=== PATIENT | female | born 1935 | race Caucasian/White ===

== ENCOUNTER 2017-08-21 09:57 | Inpatient (IN) | payer OTHER, BC ==
[2017-08-21] MEDS ORDERED: NS 1,000 ML IV ONE (10:02)
--- NOTE | 2017-08-21 10:18 | EDPHY ---
H & P Stated Complaint: Cough since Monday, N/V since last night. Time Seen by Provider: 08/21/17 10:01 HPI/ROS: CHIEF COMPLAINT: Cough x4 days, vomiting x1 day HISTORY OF PRESENT ILLNESS: The patient presents the emergency department from her primary care provider's office with a history of cough x4 days and 1 day of vomiting. The patient denies any diarrhea. She denies significant abdominal pain. She denies any recent travel outside the [place] or antibiotic use. The patient does report a remote history of hyponatremia. She takes medications for her thyroid. She denies any recent hospitalizations or surgery. REVIEW OF SYSTEMS: A comprehensive 10 point review of systems is otherwise negative aside from elements mentioned in the history of present illness. Source: Patient Exam Limitations: No limitations - Personal History Current Tetanus Diphtheria and Acellular Pertussis (TDAP): No - Medical/Surgical History Hx Asthma: No Hx Chronic Respiratory Disease: No Hx Diabetes: No Hx Cardiac Disease: No Hx Renal Disease: No Hx Cirrhosis: No Hx Alcoholism: No Hx HIV/AIDS: No Hx Splenectomy or Spleen Trauma: No Other PMH: thyroid, tremor - Social History Smoking Status: Former smoker - Physical Exam Exam: General Appearance: Alert, no distress Eyes: Pupils equal and round no pallor or injection ENT, Mouth: Mucous membranes moist Respiratory: There are no retractions, lungs are clear to auscultation Cardiovascular: Regular rate and rhythm Gastrointestinal: Abdomen is soft and nontender, no masses, bowel sounds normal Neurological: A&O, normal motor function, normal sensory exam, normal cranial nerves, resting tremor Skin: Warm and dry, no rashes Musculoskeletal: Neck is supple nontender Extremities: symmetrical, full range of motion Constitutional: Initial Vital Signs Temperature (C) 37.3 C 08/21/17 09:57 Heart Rate 69 08/21/17 09:57 Respiratory Rate 16 08/21/17 09:57 Blood Pressure 134/59 H 08/21/17 09:57 O2 Sat (%) 96 08/21/17 09:57 O2 Delivery Mode Room Air Allergies/Adverse Reactions: Sulfa (Sulfonamide Antibiotics) Allergy (Verified 10/26/14 16:56) Home Medications: Medication Instructions Recorded Cholecalciferol (Vitamin D3) 5,000 unit PO Q2D 10/26/14 [Vitamin D3] Cyanocobalamin (Vitamin B-12) 1,000 mcg PO DAILY 10/26/14 [B-12] Levothyroxine [Synthroid 50 mcg 50 mcg PO DAILY06 10/26/14 (*)] Medical Decision Making - Diagnostics Imaging Results: Imaging Impressions Chest X-Ray 08/21/17 10:18 Impression: No acute pulmonary disease. ED Course/Re-evaluation: The patient presents to the ED with a 1 day history of vomiting and a several day history of cough. I reviewed the patient's past medical records. She has a history of hyponatremia from presumed water intoxication in 2014. The patient informs me that she has only been having 3 16 oz glasses of water a day recently. The patient was taken for a chest x-ray which demonstrates no pneumonia. The patient received 450 mL of normal saline in the ED and she was clinically dehydrated. This was discontinued at 10:54 a.m. Once her sodium was documented to be 119. The patient will be admitted to the hospital in a setting of her metabolic derangement. The patient does not endorse symptoms of excess water consumption. Consultation is made with the hospitalist service. She will be admitted by Dr. Estrella. Differential Diagnosis: Differential diagnosis considered includes pneumonia, asthma, bronchitis, dehydration, metabolic abnormality Critical Care Time: Critical care time exclusive of procedures and exclusive of the PA's time was 35 minutes, performed by myself, Jm Broderick MD. The patient presents to the ED with critical hyponatremia. She will require admission to the intensive care unit for further stabilization. - Data Points Laboratory Results: Laboratory Results 08/21/17 10:15 08/21/17 10:15 08/21/17 08/21/17 10:15 10:15 WBC 6.10 10^3/uL 10^3/uL (3.80-9.50) RBC 4.07 10^6/uL L 10^6/uL (4.18-5.33) Hgb 12.8 g/dL g/dL (12.6-16.3) Hct 36.9 % L % (38.0-47.0) MCV 90.7 fL fL (81.5-99.8) MCH 31.4 pg pg (27.9-34.1) MCHC 34.7 g/dL g/dL (32.4-36.7) RDW 11.9 % % (11.5-15.2) Plt Count 188 10^3/uL 10^3/uL (150-400) MPV 9.7 fL fL (8.7-11.7) Neut % (Auto) 76.9 % H % (39.3-74.2) Lymph % (Auto) 12.1 % L % (15.0-45.0) [place] % (Auto) 10.0 % % (4.5-13.0) Eos % (Auto) 0.2 % L % (0.6-7.6) Baso % (Auto) 0.3 % % (0.3-1.7) Nucleat RBC Rel Count 0.0 % % (0.0-0.2) Absolute Neuts (auto) 4.69 10^3/uL 10^3/uL (1.70-6.50) Absolute Lymphs (auto) 0.74 10^3/uL L 10^3/uL (1.00-3.00) Absolute Monos (auto) 0.61 10^3/uL 10^3/uL (0.30-0.80) Absolute Eos (auto) 0.01 10^3/uL L 10^3/uL (0.03-0.40) Absolute Basos (auto) 0.02 10^3/uL 10^3/uL (0.02-0.10) Absolute Nucleated RBC 0.00 10^3/uL 10^3/uL (0-0.01) Immature Gran % 0.5 % % (0.0-1.1) Immature Gran # 0.03 10^3/uL 10^3/uL (0.00-0.10) Sodium 119 mEq/L L* mEq/L (135-145) Potassium 3.9 mEq/L mEq/L (3.5-5.2) Chloride 84 mEq/L L mEq/L (97-110) Carbon Dioxide 25 mEq/l mEq/l (22-31) Anion Gap 10 mEq/L mEq/L (8-16) BUN 7 mg/dL mg/dL (7-23) Creatinine 0.6 mg/dL mg/dL (0.6-1.0) Estimated GFR > 60 Glucose 110 mg/dL H mg/dL (70-100) Calcium 7.9 mg/dL L mg/dL (8.5-10.4) Medications Given: Discontinued Medications Sodium Chloride (Ns) 1,000 mls @ 0 mls/hr IV EDNOW ONE; Wide Open PRN Reason: Protocol Stop: 08/21/17 10:03 Last Admin: 08/21/17 10:13 Dose: 1,000 mls Departure - Departure Disposition: [facility] Inpatient Acute Clinical Impression: Hyponatremia, Bronchitis, Vomiting Condition: Fair
[2017-08-21 10:23] LABS: PLATELET COUNT 188 10^3/uL (150-400)
[2017-08-21] MEDS ORDERED: ONDANSETRON DISINTEGRATING 4 MG TAB PO PRN (11:22)
[2017-08-21] MEDS ORDERED: ONDANSETRON 4 MG/2 ML VIAL IVP PRN (11:22)
[2017-08-21] MEDS ORDERED: NS 1,000 ML IV SCH (11:30)
--- NOTE | 2017-08-21 11:36 | PDGENHP ---
History and Physical History and Physical: CC: 4 days of cough and 1 day of nausea vomiting HISTORY: Patient has had nausea vomiting over the last 24 hr with some loose stools, no abdominal pain, no bleeding, some mild fever symptoms but no noted fevers. She has felt weak and tired and unable to keep herself hydrated or eat any food during this time. She does admit to having some intermittent cough over the last couple of weeks that she attributes to getting some mild cold- like still illness from airline travel. She has no chest pain, production of the cough, or shortness of breath. She has had no rashes, joint symptoms, oral ulcerations, or other or 12 tissue organs. She has had and worsening of her chronic benign intention tremor but no other changes in mentation or neurologic/ motor abnormalities with this illness ROS: A comprehensive 10 system review revealed no other significant findings PAST MEDICAL HISTORY: -Hyponatremia, hypervolemic in the setting of excessive free water intake in 2014, sodium 125 with urine sodium 22 at that time; she also appeared to have poor oral salt intake at that time but was not acutely ill -Hypothyroidism on replacement -Vitamin-D deficiency on replacement -benign intention tremor FAMILY MEDICAL HISTORY: Father of lung cancer, mother of old age SOCIAL HISTORY: , no use of tobacco alcohol or street drugs MEDICATIONS: The patients list has been reconciled by our clinical pharmacist in the EMR. I have reviewed the list and ordered appropriate medicines. PHYSICAL EXAMINATION: Vital Signs: Normal vital signs without fever thus far Director Of Primary: Sinus rhythm Examination: General: alert, oriented, good mentation, relaxed; she has an obvious clear intention tremor that appears as benign tremor, but no other acute neurologic abnormalities Skin: warm, dry, good color, no rash HEENT: normal Neck: no mass or jvd Resps: relaxed Lungs: clear breath sounds Heart: regular, no murmur Abdomen: soft, nondistended, nontender, +BS, no mass Upper Extremities: normal Lower Extremities: no edema, warm No Bleeding or bruising Neurologic: normal speech/language, normal poultry pinner, no focal weakness IV site: looks normal LABORATORY DATA: Sodium 119 with low chloride and calcium, minimally elevated glucose CBC unremarkable I have ordered urine studies for sodium and creatinine and so far the urine sodium comes back elevated at 102 RADIOLOGY STUDIES: Chest x-ray two view was done in the ER and I reviewed the images: I do not see any evidence of heart failure or volume overload, there are no other cardiac or pulmonary abnormalities or effusions or masses. 12 LEAD EKG: ASSESSMENT: * Hypovolemic hyponatremia due to nausea vomiting and diarrhea; this may be aggravated by poor salt intake chronically due to her diet * 1 prior episode of hypervolemic hyponatremia caused by excessive intake of water and poor intake of solute in her diet * mild acute dehydration * suspect acute viral gastroenteritis is likely cause of nausea vomiting and loose stools PLANS: -admission to Step-Down Unit inpatient as it will take longer than 2 days to safely get her sodium carefully titrated back into range get her back to where she can hydrate herself adequately and eat -for now continue gentle saline hydration but will need to follow sodiums closely and make sure this does not decrease them -goal of increasing sodium at no more than 10 mEq per dL per 24 hr -check stool for GI pathogen panel -antiemetics as needed -DVT prophylaxis is ordered I have reviewed the patient's case in detail with Dr. Jm Broderick I have reviewed the patient's past medical records as part of this assessment, including previous hospital admission records and laboratory data from inpatient and outpatient
--- NOTE | 2017-08-21 15:04 | ASMTCMCOM ---
CM Note CM Note Notes: 81yr old female admitted for N/V, Hyponatremia. She has a hx of Hypothyroid, Vit D Deficiency and a past smoker. Patient lives with her . CM to follow for possible discharge needs. Date Signed: 08/21/2017 03:03 PM Electronically Signed By:Marnie Arriola LCSW
--- NOTE | 2017-08-21 15:50 | GCON ---
[f rep st] CONSULTATION CASE ADVOCATE CONSULTATION REASON FOR ADMISSION: Hyponatremia. HISTORY OF PRESENT ILLNESS: Ms Hale is a very pleasant 81-year-old white female with a past medical history including vitamin D deficiency, hypothyroidism, and a previous hyponatremic episode. She pr esented to the emergency room with complaints of cough as well as nausea and vomiting. Apparently, t his has been going on for several days, and she sought medical attention. Currently, she is somewhat drowsy but overall feels reasonably well. She still has some nausea. She denies any fever or night sweats. No abdominal pain. She is currently resting comfortably. PAST MEDICAL HISTORY: Again, significant for hypothyroidism, vitamin D deficiency, and hyponatremia. FAMILY HISTORY: Significant for lung cancer. SOCIAL HISTORY: No history of tobacco use. Infrequent alcohol use. She is and has Envia Lá family support. PHYSICAL EXAMINATION: VITAL SIGNS: Blood pressure 122/68, pulse is 73, respirations are 14, tempera ture 37.3, oxygen saturation 96% in room air. GENERAL: She is a well-developed, well-nourished, eld erly white female who is resting comfortably in no acute distress. HEENT: Eyes are PERRLA, EOMI. T hroat shows no erythema or tonsillar hypertrophy. NECK: Supple. No cervical adenopathy. HEART: R egular rate and rhythm and rhythm without murmurs, rubs, or gallops. LUNGS: Diminished breath sound s but no wheeze. ABDOMEN: Soft, nontender. Bowel sounds are present. EXTREMITIES: No clubbing or cyanosis, but trace lower extremity edema. LABORATORIES: White count 6.1, hemoglobin 12, hematocrit 36, platelet count 188. Sodium 118, potass ium 4.1, chloride 86, CO2 24, BUN 7, creatinine 0.5, glucose 101. IMPRESSION: 1. Hyponatremia: Likely somewhat hypovolemic. 2. Hypothyroidism. 3. Previous history of hyponatremia. 4. Vitamin D deficiency. RECOMMENDATIONS: 1. I agree with urine studies for sodium and creatinine. 2. I agree with aggressive hydration. 3. Follow sodium closely. 4. DVT and PE prophylaxis. 5. Stress ulcer prophylaxis. 6. Adequate pain control. 7. Adequate nutrition. 8. PT and OT. /[id number]/MODL
[2017-08-21] MEDS ORDERED: SODIUM CHLORIDE 1,000 MG TAB PO ONE ×2 (19:41→23:45)
--- NOTE | 2017-08-21 19:45 | HOSPPROG ---
Hospitalist Progress Note Assessment/Plan: XC note Called by RN re: Na 119, no change since admission. She is on NS at 75/hr for presumed hypovolemic hyponatremia. Urine Na was elevated at 102, ?SIADH with lack of improvement on NS. Discussed with renal. -DC NS and will tighten fluid restriction to 1,200 mLs -1 g salt tab now -recheck urine Na and check urine osm in am -cont q4h Na checks -formal nephrology consult in am if not improving Objective: Vital Signs Temp Pulse Resp BP Pulse Ox 37.2 C 65 21 H 103/58 L 95 08/21/17 16:00 08/21/17 16:00 08/21/17 16:00 08/21/17 18:14 08/21/17 16:00 Laboratory Results 08/21/17 18:05 08/20/17 08/21/17 08/22/17 05:59 05:59 05:59 Intake Total 436 Output Total 325 Balance 111 ICD10 Worksheet Patient Problems: Problems Problem Status Onset Bronchitis Acute Hyponatremia Acute Vomiting Acute
[2017-08-21] MEDS: ACETAMINOPHEN 325 MG TAB PO PRN (20:46)
[2017-08-22] MEDS: ENOXAPARIN 40 MG/0.4 ML SYR SC SCH (08:11)
--- NOTE | 2017-08-22 08:36 | PDINTPN ---
Lead Software Architect Progress Note Assessment/Plan: Assessment: * Hyponatremia-markedly improved * Hypothyroid * Vitamin-D deficiency Plan: Continue fluid restriction Frequent assessment of sodium PT/OT Out of bed to chair Likely home soon Subjective: Sitting up in chair. Comfortable. Good spirits. Objective: Vital Signs Temp Pulse Resp BP Pulse Ox 36.8 C 84 14 129/74 H 96 08/22/17 07:45 08/22/17 07:45 08/22/17 07:45 08/22/17 07:45 08/22/17 07:45 Laboratory Results 08/22/17 06:14 08/21/17 08/22/17 08/23/17 05:59 05:59 05:59 Intake Total 1500 Output Total 2095 500 Balance -595 -500 Laboratory Results 08/21/17 10:15 08/22/17 06:14 08/22/17 08/22/17 08/21/17 06:14 02:36 21:45 Sodium 127 mEq/L L mEq/L 126 mEq/L L mEq/L 116 mEq/L L* mEq/L (135 - 145) (135 - 145) (135 - 145) 08/21/17 18:05 Sodium 119 mEq/L L* mEq/L (135 - 145) - Time Spent With Patient Time Spent With Patient: 25 min of time spent with patient, over 1/2 involved with coordination of care or counseling Physical Exam - Physical Exam General Appearance: WD/WN, alert, no apparent distress EENT: PERRL/EOMI, normal ENT inspection, pharynx normal, TMs normal Neck: non-tender, full range of motion, supple, normal inspection Respiratory: chest non-tender, lungs clear, normal breath sounds Cardiac/Chest: normal peripheral pulses, regular rate, rhythm, systolic murmur Peripheral Pulses: 2+: carotid (R), carotid (L), femoral (R), femoral (L), dorsalis-pedis (R), dorsalis-pedis (L) Abdomen: normal bowel sounds, non-tender, soft Pelvic Exam: deferred Rectal: deferred Skin: normal color, warm/dry Extremities: normal range of motion, non-tender, normal inspection, normal capillary refill Neuro/Psych: no motor/sensory deficits, alert, normal mood/affect, oriented x 3 ICD10 Worksheet Patient Problems: Problems Problem Status Onset Bronchitis Acute Hyponatremia Acute Vomiting Acute
--- NOTE | 2017-08-22 09:59 | HOSPPROG ---
Hospitalist Progress Note Assessment/Plan: DIAGNOSES: * acute hyponatremia, hypovolemic but with fairly high urine sodium yet very low urine osmolality * The physiology of this hyponatremia is difficult to clarify, and I reviewed this with Dr. Wallace of Nephrology who also is uncertain of the exact physiology in this case; certainly her GI losses are playing some role in this but whether she actually has an SIADH or some other cause is difficult to determine with certainty. Dr. Wallace have however seen a number of patients like this and most recently has found that treatment with urea can be very helpful, as detailed in the UP TO DATE section on hyponatremia; I suspect that she is chronically salt depleted and possibly depleted of other solutes related to decreased protein intake due to her diet which is V gin but also described by her and her as unusual and a raw diet * At this time she has improved with fluid restriction and some oral salt supplementation although a little bit faster overnight than ideal. She has not however yet had a 10 mEq increase in sodium level so we should be safe and will continue careful monitoring, but would not give any more oral supplementation at present * At the moment there is nothing that really would suggest to salt wasting nephropathy or an adrenal insufficiency syndrome * 1 prior episode of hypervolemic delusional hyponatremia * acute gastroenteritis, improving, suspect viral * GI pathogen panel pending although with her stools improving I am not sure that will find anything * acute fever, question if it is due to the gastroenteritis or other cause * mild URI symptoms with cough PLANS: -for the time being continue oral fluid restriction and follow sodium closely. -will not give any more oral sodium replacement unless we have trouble getting her numbers up or to start decreasing again -I will contact our pharmacy and see if they have any urea here that we can use -will have a silviculturist see me her with her and review her home diet so I can understand the home diet better in terms of salt protein and other solute intake I reviewed all the above in detail with the patient and her family at the bedside, and answered their questions At this time need ongoing inpatient care to monitor her sodium and make sure that she stays hydrated SUBJECTIVE: Overall she feels slightly better today, although still extremely weak and tired compared usual Still has cough which is nonproductive but not short of breath No abdominal pain, still some nausea but has been able to keep some food and fluid down Loose stools seem to have resolved at present No new symptoms OBJECTIVE Vitals reviewed: There was a fever of 38.3 last night but her temperatures have been normal since, otherwise normal vitals Scoop Machine Operator, my review: Sinus rhythm Exam: alert oriented, looks comfortable skin warm dry color ok resps not labored lungs diminished but otherwise clear BSs heart regular abd soft nondistended nontender, bowel sounds present limbs warm, no edema iv site ok Laboratory data: Sodium remained unchanged through the evening last night on fluid restriction and saline replacement at 118-119. Subsequent to that she was put on a stricter oral fluid restriction and given some sodium replacement orally, with discontinuation of the saline. This did lead to a jump last evening in her sodium from 119 to 126, and this morning is at 127 Without further oral supplementation. The rest of her chemistry panel is unremarkable and TSH is normal. On further assessment of the urine which had shown a high sodium at 122 her urine osmolality was very low at 229. Microbiology data: A GI pathogen panel PCR test is pending Objective: Vital Signs Temp Pulse Resp BP Pulse Ox 36.8 C 84 14 129/74 H 96 08/22/17 07:45 08/22/17 07:45 08/22/17 07:45 08/22/17 07:45 08/22/17 07:45 Laboratory Results 08/22/17 06:14 08/21/17 08/22/17 08/23/17 06:59 06:59 06:59 Intake Total 1500 Output Total 2098 500 Balance -595 -500 - Time Spent With Patient Time Spent with Patient: greater than 35 minutes Time Spent with Patient: Greater than 35 minutes spent on this patients care, greater than 50% of time spent counseling, educating, and coordinating care regarding the above mentioned plan. ICD10 Worksheet Patient Problems: Problems Problem Status Onset Bronchitis Acute Hyponatremia Acute Vomiting Acute
--- NOTE | 2017-08-22 10:55 | PDMN ---
Medical Necessity Medical necessity: est los>2mn for hypovolemic hyponatremia r/t N/V/D, and suspected gastroenteritis; admit to ICU/SDU for safe titration of Na, IVF, and antiemetics; hx hyponatremia and hypovolemia; per order and H&P 08/21/17
[2017-08-22] MEDS: ACETAMINOPHEN 325 MG TAB PO PRN (12:58)
[2017-08-23 08:23] VITALS: BP 121/62
[2017-08-23] MEDS ORDERED: LEVOTHYROXINE 50 MCG TAB PO SCH (09:15)
[2017-08-23] MEDS ORDERED: NON-FORMULARY NEW DRUG (Cyanocobalamin (Vitamin B-12) [B-12] 1,000 MCG) PO SCH (09:15)
[2017-08-23] MEDS: ENOXAPARIN 40 MG/0.4 ML SYR SC SCH (09:43)
--- NOTE | 2017-08-23 11:52 | ASMTCMCOM ---
CM Note CM Note Notes: Spoke w/RN, anticipate pt will dc home w/support of when medically stable. CM available for any changes. DC Plan: Independent Date Signed: 08/23/2017 11:52 AM Electronically Signed By:Aiyana Gomes RN
--- NOTE | 2017-08-23 12:47 | PDDCSUM ---
Discharge Summary Discharge Summary: DISCHARGE DIAGNOSES: -acute hyponatremia, moderately severe, hypovolemic but with complex and incompletely defined physiology -acute gastroenteritis, resolved -mild upper respiratory infection symptoms without fevers or any respiratory compromise HOSPITAL COURSE SUMMARY: This patient who has 1 prior episode of significant hyponatremia came into the hospital at this time having had some nausea vomiting and loose stools for approximately 1 day and feeling weak and tired. She was found have a sodium of 119. Her renal function was normal without any elevation of BUN, however clinically at the bedside she appeared mildly dehydrated. Reviewing her chronic outpatient blood test she usually has a slightly low sodium at the 131 tooth 133 range, does not take any diuretics, and probably has a somewhat low salt and protein intake altogether from her diet. Initially she was treated with normal saline but did not have much response to this. Subsequently this was stopped and she was treated with oral salt supplements along with an oral fluid restriction and this led to a much more significant increase in her sodium. Her vomiting and loose stools have resolved and she is eating and drinking well, is on of oral fluid restriction here. At this point her sodium level is between 129 and 131, very close to her chronic range. Notably she does have by numbers some mild orthostasis although she is not symptomatic with this. At the time of admission her urine sodium was quite elevated at 102, however her urine osmolality was quite low at 220. I reviewed these findings with Madison from the nephrology service and he was not certain how they should be interpreted, but recommended that she be on at least some fluid restriction and that she may need salt and protein supplementation ongoing. However he did also mention that he has had success treating patients in this scenario with urea capsules as an osmotic diuretic. This treatment is reviewed in detail in UP TO DATE and urea capsules can be custom formulated at [facility] [place]. Notably the patient also did have 1 milder episode of hyponatremia with sodium 125 3 years ago here. At that time she did not have any GI fluid or salt losses was not taking any diuretic, but was felt to have a low-sodium intake and a very high fluid intake. At the time her urine sodium was 22, dramatically different than this episode, and indicated a clear delusional effect at that time. PENDING TEST RESULTS: None MEDICATION CHANGES: None FOLLOW-UP PLAN: She will follow up with Makenzie Mock in clinic early next week and should have recheck of her sodium at that time, as well as orthostatic vital signs and questioning regarding any orthostatic symptoms. She has been instructed to increase salt and protein intake, and to limit total oral fluid intake to 1800 mL per 24 hr She is instructed to monitor for any symptoms of orthostasis Greater than 35 minutes bedside and care coordination time today
[2017-08-24] MEDS ORDERED: CYANO/VITAMIN B12 1000 MCG TAB PO SCH (09:00)
== END 2017-08-23 13:48 | disposition home or self-care (01) | DRG 641 ==
LOC: F2N 13:51 → F3E 08-22 12:45
PROVIDERS: ADMIT Internal Medicine; ATTEND Internal Medicine
DX: E87.1 Hypo-osmolality and hyponatremia (principal); A08.4 Viral intestinal infection, unspecified; E86.0 Dehydration; E03.9 Hypothyroidism, unspecified; G25.2 Other specified forms of tremor; E55.9 Vitamin D deficiency, unspecified; Z87.891 Personal history of nicotine dependence
CPT/HCPCS: J1650

== ENCOUNTER 2018-08-11 20:01 | Emergency (ER) | payer OTHER, BC ==
--- NOTE | 2018-08-11 20:22 | EDPHY ---
H & P Stated Complaint: thinks she has low sodium, feels off Time Seen by Provider: 08/11/18 20:21 - Personal History Current Tetanus/Diphtheria Vaccine: Unsure Current Tetanus Diphtheria and Acellular Pertussis (TDAP): Unsure - Medical/Surgical History Hx Asthma: No Hx Chronic Respiratory Disease: No Hx Diabetes: No Hx Cardiac Disease: No Hx Renal Disease: No Hx Cirrhosis: No Hx Alcoholism: No Hx HIV/AIDS: No Hx Splenectomy or Spleen Trauma: No Other PMH: hypothyroid, tremor, low sodium - Social History Smoking Status: Former smoker Constitutional: Initial Vital Signs Temperature (C) 37.0 C 08/11/18 20:08 Heart Rate 82 08/11/18 20:08 Respiratory Rate 18 08/11/18 20:08 Blood Pressure 147/100 H 08/11/18 20:08 O2 Sat (%) 96 08/11/18 20:08 O2 Delivery Mode Room Air Allergies/Adverse Reactions: Sulfa (Sulfonamide Antibiotics) Allergy (Verified 08/11/18 20:11) Home Medications: Medication Instructions Recorded Cyanocobalamin (Vitamin B-12) 1,000 mcg PO DAILY 10/26/14 [B-12] Levothyroxine [Synthroid 50 mcg 50 mcg PO DAILY06 10/26/14 (*)] Cephalexin [Keflex (RX)] 500 mg PO TID #30 cap 08/11/18 Medical Decision Making ED Course/Re-evaluation: CHIEF COMPLAINT: Low sodium, "feeling off" HISTORY OF PRESENT ILLNESS: The patient is an 82 y/o female with a history of hyponatremia complaining of low sodium and "feeling off". The patient has been admitted twice for hyponatremia, the last time was 08/21/17. On 08/03/18, 1 week ago she had sodium level of 130, which concerned her. Today she had a loose stool bowel movement and a "foggy brain". She was working in the yard all day and is unsure if she is dehydrated. With prior admission she had a diarrhea and vomiting. She denies vomiting or feeling dizzy. No fever, headache, body aches, lightheadedness, chest pain, heart palpitations, shortness of breath, cough, abdominal pain, urinary or bowel complaints, numbness, paresthesias. REVIEW OF SYSTEMS: A comprehensive 10 system review of systems is otherwise negative aside from elements mentioned in the history of present illness and medical decision making. PHYSICAL EXAM: HR, BP, O2 Sat, RR. Temp noted General Appearance: "Feeling off", alert, well hydrated, appropriate, and non- toxic appearing. Head: Atraumatic without scalp tenderness or obvious injury Eyes: Pupils equal, round, reactive to light and accommodation, EOMI, no trauma , no injection. Ears: Clear bilaterally, no perforation, normal landmarks Nose: Atraumatic, no rhinorrhea, clear. Throat: There is no erythema or exudates, no lesions, normal tonsils, mucus membranes moist. Neck: Supple, 2+ carotid upstroke, nontender, no lymphadenopathy. Respiratory: No retractions, no distress, no wheezes, and no accessory muscle use. Lungs are clear to auscultation bilaterally. Cardiovascular: Regular rate and rhythm, no murmurs, rubs, or gallops. Bilateral carotid, radial, dorsalis pedis, and posterior tibial pulses intact. Good capillary refill all extremities. Gastrointestinal: Abdomen is soft, nontender, non-distended, no masses, no rebound, no guarding, no peritoneal signs. Musculoskeletal: Normal active ROM of all extremities, atraumatic. Neurological: Alert, appropriate, and interactive. The patient has normal DTRs and non-focal cranial nerves, motor, sensory, and cerebellar exam. Skin: No rashes, good turgor, no nodules on palpation. Past medical history: Hyponatremia, hypothyroid Past surgical history: Denies Family history: Denies Social history: at bedside, lives in [place], retired DIAGNOSTICS/PROCEDURES/CRITICAL CARE TIME: Not indicated. DIFFERENTIAL DIAGNOSIS: The differential diagnosis for the patient's altered mental status included but was not limited to hypoglycemia, infectious process, electrolyte abnormality, head injury, neurologic process, anemia, cardiac process, and intoxicants. MEDICAL DECISION MAKING: The patient is an 82 y/o female with a history of hyponatremia presenting with low sodium and "feeling off and foggy". The patient has been admitted twice for hyponatremia, the last time was 08/21/17. On 08/03/18, 1 week ago she had sodium level of 130, which concerned her. Today she had a loose stool bowel movement and a "foggy brain". She has an otherwise normal physical exam. Labs and UA ordered. 2030: Patient has a sodium level of 134 which is higher than a sodium level of 130 one week ago. UA still pending. 2119: Patient's UA reveals a UTI. I will prescribe and start her on Keflex. 2120: Reassessed patient and discussed laboratory findings. She would rather drink water and not take Keflex, I will still give her the prescription. Return precautions provided; patient is comfortable with this plan. - Data Points Laboratory Results: 08/11/18 08/11/18 21:05 20:34 POC Hgb 13.9 gm/dL gm/dL (12.6-16.3) POC Hct 41 % % (38-47) POC Sodium 134 mEq/L L mEq/L (135-145) POC Potassium 4.0 mEq/L mEq/L (3.3-5.0) POC Chloride 98 mEq/L mEq/L (97-110) POC Total CO2 26 mEq/L mEq/L (22-31) POC BUN 6 mg/dL L mg/dL (7-23) POC Creatinine 0.6 mg/dL mg/dL (0.6-1.0) POC Glucose 104 mg/dL H mg/dL (70-100) Urine Color YELLOW Urine Appearance CLEAR Urine pH 7.0 (5.0-7.5) Ur Specific [place] 1.010 (1.002-1.030) Urine Protein NEGATIVE (NEGATIVE) Urine Ketones 1+ H (NEGATIVE) Urine Blood NEGATIVE (NEGATIVE) Urine Nitrate NEGATIVE (NEGATIVE) Urine Bilirubin NEGATIVE (NEGATIVE) Urine Urobilinogen NEGATIVE EU EU (0.2-1.0) Ur Leukocyte Esterase 1+ H (NEGATIVE) Urine RBC 1-3 /hpf /hpf (0-3) Urine WBC 3-5 /hpf H /hpf (0-3) Ur Epithelial Cells TRACE /lpf /lpf (NONE-1+) Urine Bacteria TRACE /hpf H /hpf (NONE SEEN) Urine Glucose NEGATIVE (NEGATIVE) Point of Care Test Results: Chemistry 08/11/18 20:34 POC Sodium 134 mEq/L L mEq/L (135-145) POC Potassium 4.0 mEq/L mEq/L (3.3-5.0) POC Chloride 98 mEq/L mEq/L (97-110) POC Total CO2 26 mEq/L mEq/L (22-31) POC BUN 6 mg/dL L mg/dL (7-23) POC Creatinine 0.6 mg/dL mg/dL (0.6-1.0) POC Glucose 104 mg/dL H mg/dL (70-100) ISTAT H&H 08/11/18 20:34 POC Hgb 13.9 gm/dL gm/dL (12.6-16.3) POC Hct 41 % % (38-47) Departure - Departure Disposition: Home, Routine, Self-Care Clinical Impression: UTI (urinary tract infection) Qualifiers: Urinary tract infection type: site unspecified Hematuria presence: without hematuria Qualified Code(s): N39.0 - Urinary tract infection, site not specified Condition: Good Instructions: Urinary Tract Infection in Women (ED) Additional Instructions: 1. Take Keflex as prescribed. 2. Follow-up with your primary doctor within 72 hours. 3. Return to the Emergency Department for fever, worsening pain, flank pain or failure to improve within 72 hours. Referrals: [facility],. [Clinic] - As per Instructions Amandeep Brower MD [[facility] [place]] - As per Instructions Prescriptions: Cephalexin [Keflex (RX)] 500 mg PO TID #30 cap Report Scribed for: Blaise Dickson Report Scribed by: Melani Almaguer Date of Report: 08/11/18 Time of Report: 20:54
[2018-08-11] MEDS ORDERED: CEPHALEXIN 500 MG CAP PO ONE (21:18)
[2018-08-11 21:27] VITALS: BP 134/86
== END 2018-08-11 21:31 | disposition home or self-care (01) ==
DX: N39.0 Urinary tract infection, site not specified (principal); E03.9 Hypothyroidism, unspecified; Z86.39 Personal history of other endocrine, nutritional and metabolic disease
CPT/HCPCS: 82435-PO; 82565-PO; 82947-PO; 84132-PO; 84295-PO; 84520-PO; 85014-ER